=== PATIENT | female | born 1940 | race African-American/Black ===

== ENCOUNTER 2016-11-03 15:45 | Inpatient (IN) | payer MEDICARE ==
[~2016-11-03] VITALS: Ht 167.6 cm; Wt 52.6 kg
[2016-11-03] MEDS ORDERED: IBUPROFEN600 MG ORAL (16:00)
[2016-11-03] MEDS ORDERED: BACTRIM 400-801 EACH ORAL (16:00)
[2016-11-03] MEDS ORDERED: cefTRIAXone 1 GM in NS 55 ML IVPB ONE (16:15)
[2016-11-03] MEDS ORDERED: Morphine Sulfate 2mg/ml Inj IVP ONE ×2 (16:15→22:00)
[2016-11-03 16:57] VITALS: BP 171/130
[2016-11-03 17:17] LABS: ALANINE AMINOTRANSFERASE 12 U/L (3-33); ALBUMIN/GLOBULIN RATIO 1.1 (1.0-2.7); ANION GAP 17 (5-15); ASPARTATE AMINO TRANSFERASE 17 U/L (5-40); CALCIUM 10.4 mg/dL (8.6-10.2); CARBON DIOXIDE 24 mEQ/L (20-30); CHLORIDE 95 mEQ/L (98-107); CREATININE 1.1 mg/dL (0.5-0.9); HEMOLYSIS 0; POTASSIUM 4.5 mEQ/L (3.4-4.9); SODIUM 136 mEQ/L (135-145); TOTAL PROTEIN 8.4 g/dL (6.6-8.7); TROPONIN I < 0.30 ng/mL (<=0.30)
[2016-11-03 17:22] LABS: EOSINOPHILS % (AUTO) 2.5 % (0.0-3.0); LYMPHOCYTES % (AUTO) 24.5 % (20.0-45.0); MEAN CORPUSCULAR HGB CONC 29.6 G/DL (32.0-36.0); MEAN CORPUSCULAR VOLUME 78 FL (80-99); MONOCYTES % (AUTO) 8.3 % (1.0-10.0); NEUTROPHILS % (AUTO) 63.8 % (45.0-75.0); PLATELET COUNT 318 K/UL (150-450); RED BLOOD COUNT 3.92 M/UL (4.20-5.40); RED CELL DISTRIBUTION WIDTH 14.9 % (11.6-14.8); WHITE BLOOD COUNT 6.6 K/UL (4.8-10.8)
[2016-11-03 17:40] LABS: PROTHROMBIN TIME 9.7 SEC (9.30-11.50)
[2016-11-03 18:45] VITALS: BP 160/56
--- NOTE | 2016-11-03 19:51 | Emergency Room Report ---
History of Present Illness General Chief Complaint: Pain Source: Patient Present Illness HPI Patient is a 76-year-old female who presented after having increased left foot pain and swelling. Patient was noted to have prior history of vascular disease and diabetes. Patient stated that she had had recently been seen by her doctor who started her on Bactrim. Patient reported increased pain to her foot. She stated that she had increased pain with ambulation. This did not change with rest or positioning. She denied any fever. She reports having prior history of peripheral vascular disease and states that she's not had a pulse on her feet for the past 3 years. Allergies: Coded Allergies: LEVOFLOXACIN (Verified Allergy, Unknown, 11/03/16) PENICILLINS (Verified Allergy, Unknown, 11/03/16) Patient History Past Medical History: see triage record, DM Now: No Reviewed Nursing Documentation: PMH: Agreed, PSxH: Agreed Nursing Documentation-PMH Hx Diabetes: Yes Review of Systems All Other Systems: negative except mentioned in HPI Physical Exam Vital Signs Date Time Temp Pulse Resp B/P Pulse Ox O2 Delivery O2 Flow Rate FiO2 11/03/16 15:49 97.9 85 17 192/74 99 Room Air Sp02 EP Interpretation: reviewed, normal General Appearance: normal inspection, well appearing, no apparent distress, alert, GCS 15 Head: atraumatic ENT: normal ENT inspection, hearing grossly normal, normal voice Neck: normal inspection, full range of motion, supple, no bony tend Respiratory: normal inspection, lungs clear, normal breath sounds, no respiratory distress, no retraction, no wheezing Cardiovascular #1: regular rate, rhythm, no edema Gastrointestinal: normal inspection, normal bowel sounds, non tender, soft, no guarding, no hernia Genitourinary: no CVA tenderness Musculoskeletal: normal inspection, back normal, normal range of motion Neurologic: normal inspection, alert, oriented x3, responsive, canteen operator III-XII nml as tested, speech normal Psychiatric: normal inspection, judgement/insight normal, mood/affect normal Skin: no rash, other - etyhem Medical Decision Making Diagnostic Impression: Primary Impression: Diabetes Additional Impression: Cellulitis of foot ER Course `Patient is a 76-year-old female who presented after having increased the left lower extremity pain. Differential diagnosis included but was not limited to fracture, contusion, , vascular insufficiency, aortic aneurysm, cellulitis.Because of complexity of patient's case laboratory testing and imaging studies were ordered. The patient was noted to have some vascular lesions in prior history of vascular insufficiency on duplex ultrasound. The patient was noted to have some evidence of cellulitis to left foot. The patient started on IV Rocephin. Dr. Carlitos Carrero was contacted for inpatient management Labs Test 11/03/16 16:30 White Blood Count 6.6 K/UL (4.8-10.8) Red Blood Count 3.92 M/UL (4.20-5.40) Hemoglobin 9.0 G/DL (12.0-16.0) Hematocrit 30.4 % (37.0-47.0) Mean Corpuscular Volume 78 FL (80-99) Mean Corpuscular Hemoglobin 23.0 PG (27.0-31.0) Mean Corpuscular Hemoglobin Concent 29.6 G/DL (32.0-36.0) Red Cell Distribution Width 14.9 % (11.6-14.8) Platelet Count 318 K/UL (150-450) Mean Platelet Volume 6.0 FL (6.5-10.1) Neutrophils (%) (Auto) 63.8 % (45.0-75.0) Lymphocytes (%) (Auto) 24.5 % (20.0-45.0) Monocytes (%) (Auto) 8.3 % (1.0-10.0) Eosinophils (%) (Auto) 2.5 % (0.0-3.0) Basophils (%) (Auto) 1.0 % (0.0-2.0) Prothrombin Time 9.7 SEC (9.30-11.50) Prothromb Time International Ratio 1.0 (0.9-1.1) Activated Partial Thromboplast Time 23 SEC (23-33) Sodium Level 136 mEQ/L (135-145) Potassium Level 4.5 mEQ/L (3.4-4.9) Chloride Level 95 mEQ/L (98-107) Carbon Dioxide Level 24 mEQ/L (20-30) Anion Gap 17 (5-15) Blood Urea Nitrogen 15 mg/dL (7-23) Creatinine 1.1 mg/dL (0.5-0.9) Estimat Glomerular Filtration Rate mL/min (>60) Glucose Level 271 mg/dL (74-106) Calcium Level 10.4 mg/dL (8.6-10.2) Total Bilirubin < 0.2 mg/dL (0.0-1.2) Aspartate Amino Transf (AST/SGOT) 17 U/L (5-40) Alanine Aminotransferase (ALT/SGPT) 12 U/L (3-33) Alkaline Phosphatase 79 U/L (35-104) Troponin I < 0.30 ng/mL (<=0.30) Total Protein 8.4 g/dL (6.6-8.7) Albumin 4.5 g/dL (3.5-5.2) Globulin 3.9 g/dL Albumin/Globulin Ratio 1.1 (1.0-2.7) Last Vital Signs Date Time Temp Pulse Resp B/P Pulse Ox O2 Delivery O2 Flow Rate FiO2 11/03/16 18:45 71 18 160/56 100 Room Air 11/03/16 17:13 97.8 Status: unchanged Disposition: ADMITTED INPATIENT Condition: Serious Referrals: NOT CHOSEN IPA/,REFERRING (PCP) Aubrey Whitaker Nov 03, 2016 19:51
[2016-11-03 23:00] VITALS: BP 190/88
[2016-11-03] MEDS ORDERED: Vancomycin 750mg Inj IVPB ONE (23:35)
[2016-11-04] VITALS (7 sets, daily range): BP systolic 151–195; BP diastolic 56–89
[2016-11-04] MEDS: Vancomycin 750mg/D5W 275ml IVPB SCH ×4 (00:45→21:49)
--- NOTE | 2016-11-04 02:59 | History and Physical Report ---
DATE OF ADMISSION: 11/03/2016 REASON FOR ADMISSION: Left lower extremity cellulitis and pain. HISTORY OF PRESENT ILLNESS: This is a 76-year-old female with a history of diabetes mellitus. She has a known history of peripheral artery disease and states that she has poor circulation to her left leg. She has had increasing pain and tightness of the skin of her toes. The left first and second toes have also lost the nail beds and have had some open ulcers that have been more and more painful. The patient self-treated with some clover extract. The patient presented to the hospital for management of pain and possible infection. She was given oral antibiotics namely Bactrim and ibuprofen for pain at a clinic last week, but did not improve. ALLERGIES: Include penicillin and Levaquin. SOCIAL HISTORY: She is an active smoker, five to six cigarettes daily, but has smoked more in the past. No alcohol or substance abuse. MEDICATIONS: Prior to admission include Prandin and ibuprofen as well as recent Bactrim. PAST MEDICAL HISTORY: Peripheral artery disease and type 2 diabetes mellitus. REVIEW OF SYSTEMS: No fevers or chills. No cough or sputum production. No history of asthma or blood clots. No history of seizure or stroke. No history of heart attacks or high blood pressure. No change in bowel habits. No recent mammogram. No history of kidney disorders. No known history of thyroid disorder. Does not know her cholesterol level. PHYSICAL EXAMINATION: GENERAL: Thin, frail, in no acute distress. VITAL SIGNS: Afebrile, blood pressure 192/74, pulse 85, and respirations 17. HEENT: Temporal wasting. Pale conjunctivae. Oropharynx clear. NECK: Supple. Jugular venous pressure normal. LUNGS: Clear. BREASTS: No breast masses. CARDIAC: Regular rhythm and rate. Normal S1 and S2 with a fourth heart sound. ABDOMEN: Soft and nontender. EXTREMITIES: No edema. Distal pulses not palpable. The left foot is much worse than the right with regard to coolness, but no gangrenous changes. The skin is tight and the first and second toe beds of black discoloration. LABORATORY DATA: White count 6.6, hemoglobin 9, MCV 78, and platelet count 318,000. Sodium 136, potassium 4.5, bicarbonate 24, BUN 15, creatinine 1.1, and glucose 271. Troponin negative. Albumin 4.5. IMPRESSION: 1. Left lower extremity cellulitis. 2. Peripheral artery disease, likely microvascular. 3. Microcytic anemia. 4. Type 2 diabetes mellitus, uncontrolled. 5. Elevated blood pressure, rule out hypertension. 6. Nicotine abuse. PLAN: 1. Pain control. 2. Noninvasive imaging studies of the arterial lower extremity bed. 3. Empiric antibiotics. 4. Imaging studies to assess for deepest infection. 5. Insulin coverage by sliding scale . 6. Consider additional oral hypoglycemic therapy. 7. Check lipid panel. 8. Add lisinopril for blood pressure control. 9. Check thyroid function. 10. DVT prophylaxis. 11. Further recommendations will follow. Carlitos Carrero M.D. DR: YOVANI JOB#: [id number] CC:
[2016-11-04] MEDS ORDERED: NovoLOG Insulin Flexpen SUBQ SCH (06:30)
[2016-11-04 06:58] LABS: MEAN CORPUSCULAR HEMOGLOBIN 23.1 PG (27.0-31.0); MEAN CORPUSCULAR HGB CONC 30.1 G/DL (32.0-36.0); MEAN CORPUSCULAR VOLUME 77 FL (80-99); MEAN PLATELET VOLUME 6.4 FL (6.5-10.1); PLATELET COUNT 266 K/UL (150-450); RED BLOOD COUNT 3.31 M/UL (4.20-5.40); WHITE BLOOD COUNT 6.9 K/UL (4.8-10.8)
[2016-11-04] MEDS ORDERED: HYDROmorphone 1mg/ml Carpuject IVP PRN (07:00)
[2016-11-04] MEDS: Repaglinide 1mg tab ORAL SCH ×3 (07:02→16:42)
[2016-11-04] MEDS: NovoLOG Insulin Flexpen SUBQ SCH ×4 (07:04→20:36)
[2016-11-04 07:08] LABS: THYROID STIMULATING HORMONE 1.4 uIU/mL (0.300-4.500)
[2016-11-04] MEDS: Norco 5mg/325mg tab ORAL PRN ×2 (07:10→23:14)
[2016-11-04 08:14] LABS: CHOLESTEROL/HDL RATIO 2.2 (3.3-4.4)
[2016-11-04 08:18] LABS: HEMOGLOBIN A1C 10.2 % (< 6.0)
[2016-11-04] MEDS: Lisinopril 20mg tab ORAL SCH (09:00)
[2016-11-04] MEDS: Aspirin Baby 81mg NG SCH (09:00)
[2016-11-04 10:43] LABS: EOSINOPHILS % (MANUAL) 4 % (0-3); LYMPHOCYTES % (MANUAL) 32 % (20-45); NEUTROPHILS % (MANUAL) 56 % (45-75); TOTAL CELLS COUNTED 100
[2016-11-04 10:44] LABS: ANISOCYTOSIS 1+; BAND NEUTROPHILS % (MANUAL) 0 % (0-8); BASOPHILS % (MANUAL) 0 % (0-2); HYPOCHROMASIA 2+; PLATELET ESTIMATE ADEQUATE; PLATELET MORPHOLOGY NORMAL
--- NOTE | 2016-11-04 13:19 | Diagnostic Imaging Report ---
APPROVED REPORT CPT Code: 07353 Symptoms Comments: Severe LE pain, left toes. Risk Factors Diabetes RIGHT LEG: Common femoral artery waveform analysis is within normal limits at rest. Color flow duplex sonography reveals moderate calcification throughout the superficial femoral artery. A severe stenosis (50 % - 70%) is seen in the bnu-un-uincic superficial femoral artery. A minimal (10 % - 30 %) stenosis is seen in the popliteal artery. The tibioperoneal trunk is patent. There is a severe stenosis in the posterior tibial and peroneal arteries. The distal posterior and dorsalis pedis arteries are also moderately calcified. The Doppler tibial artery waveform analysis is compatible with severe ischemia at rest. LEFT LEG: Common femoral artery waveform analysis is within normal limits at rest. Color flow duplex sonography reveals moderate to severe calcification throughout the superficial femoral artery. A mild stenosis is seen at the bifurcation of the profunda femoris and the superficial femoral artery. A severe stenosis (50 % - 70%) is seen in the qut-xv-xohmpe superficial femoral artery. A minimal (10 % - 30 %) stenosis is seen in the popliteal artery. The tibioperoneal trunk is patent. There is a severe stenosis in the posterior tibial and peroneal arteries. The distal posterior and dorsalis pedis arteries are also moderately calcified. The Doppler tibial artery waveform analysis is compatible with severe ischemia at rest. Dr. Whitaker was informed of abnormal results at 18:40 hrs.
[2016-11-04] MEDS ORDERED: D5W 275ml ONE (16:21)
[2016-11-04] MEDS ORDERED: Tubing IV Secondary IV ONE (16:21)
[2016-11-04] MEDS: Heparin 5000 units/ml inj SUBQ SCH (20:36)
[2016-11-04] MEDS: Iron Sucrose 100 MG in NS 55 ML IVPB SCH (21:18)
[2016-11-05] VITALS: BP 175/73
[2016-11-05 04:00] VITALS: BP 169/69
[2016-11-05] MEDS: Repaglinide 1mg tab ORAL SCH ×3 (05:53→16:54)
[2016-11-05] MEDS: NovoLOG Insulin Flexpen SUBQ SCH ×4 (05:54→21:11)
[2016-11-05] MEDS: Norco 5mg/325mg tab ORAL PRN ×2 (07:48→22:01)
[2016-11-05] MEDS: Lisinopril 20mg tab ORAL SCH (07:58)
[2016-11-05] MEDS: Aspirin Baby 81mg NG SCH (07:59)
[2016-11-05 08:00] VITALS: BP 153/77
[2016-11-05] MEDS: Heparin 5000 units/ml inj SUBQ SCH ×2 (08:00→20:02)
--- NOTE | 2016-11-05 08:27 | Diagnostic Imaging Report ---
Indication: Pain Technique: Left foot imaging utilizing multiplanar T1 fast spin-echo, proton and T2 fast spin-echo with fat saturation, and STIR. Comparison: None Findings: The region of concern is the first and second toes. Specifically there is an infection of the nailbed in both toes. The MRI images demonstrate some T2 hyperintense signal within the first and second distal phalanges with completely normal T1 appearance. Findings are probably on the basis of reactive bone marrow edema secondary to the nailbed infection. Osteomyelitis is not entirely excludable but the specificity of MR diagnosis of osteomyelitis is significantly lower when the short T1 signal (indicative of fat) is preserved which it is in this case. There is no abscess. The other visualized osseous structures appear unremarkable. Impression: Nonspecific T2 hyperintensity likely edema involving the tip of the first and second distal phalanges. The findings are probably on the basis of reactive bone marrow edema secondary to adjacent nailbed soft tissue infection. Osteomyelitis is not excluded.
[2016-11-05 12:00] VITALS: BP 154/63
[2016-11-05 12:10] LABS: BASOPHILS % (AUTO) 0.9 % (0.0-2.0); EOSINOPHILS % (AUTO) 3.4 % (0.0-3.0); LYMPHOCYTES % (AUTO) 27.4 % (20.0-45.0); MEAN CORPUSCULAR HEMOGLOBIN 22.9 PG (27.0-31.0); MEAN CORPUSCULAR HGB CONC 29.7 G/DL (32.0-36.0); MEAN CORPUSCULAR VOLUME 77 FL (80-99); MEAN PLATELET VOLUME 6.1 FL (6.5-10.1); MONOCYTES % (AUTO) 9.6 % (1.0-10.0); NEUTROPHILS % (AUTO) 58.8 % (45.0-75.0); PLATELET COUNT 315 K/UL (150-450); RED BLOOD COUNT 3.56 M/UL (4.20-5.40); WHITE BLOOD COUNT 6.5 K/UL (4.8-10.8)
[2016-11-05 16:00] VITALS: BP 143/65
[2016-11-05 20:00] VITALS: BP 171/93
[2016-11-05] MEDS: Iron Sucrose 100 MG in NS 55 ML IVPB SCH (21:26)
[2016-11-05] MEDS: Vancomycin 750mg/D5W 275ml IVPB SCH ×2 (22:13)
[2016-11-06] VITALS: BP 125/89
--- NOTE | 2016-11-06 02:08 | Progress Note ---
DATE: 11/05/2016 INTERNAL MEDICINE PROGRESS NOTE SUBJECTIVE: The patient feels better. Pain is improving. Her hemoglobin has increased to 8.2. She is on IV iron. Glucose remains elevated in the range of 200. OBJECTIVE: VITAL SIGNS: Blood pressure 154/63, pulse 77, and respirations 20. NECK: Supple. LUNGS: Clear. CARDIAC: Regular. ABDOMEN: Soft. EXTREMITIES: No edema. Feet are warm. Left toe is still with tenderness over the nail bed. IMPRESSION: The patient refuses antihypertensive therapy. She agrees to continued iron replacement. She confirms a colonoscopy within the last two years with no findings. She will complete antibiotics for her local soft tissue infection. She will consider vascular evaluation as an outpatient. She will agree to advancing her oral hypoglycemic drugs as well. Carlitos Carrero M.D. DR: EARNEST JOB#: [id number] CC:
[2016-11-06 04:00] VITALS: BP 149/74
[2016-11-06] MEDS: Norco 5mg/325mg tab ORAL PRN (04:03)
[2016-11-06] MEDS: metFORMIN 500mg tab ORAL SCH ×2 (05:49→12:46)
[2016-11-06] MEDS: NovoLOG Insulin Flexpen SUBQ SCH ×2 (05:50→11:30)
[2016-11-06] MEDS: Repaglinide 1mg tab ORAL SCH ×2 (05:50→12:46)
--- NOTE | 2016-11-06 06:58 | Progress Note ---
DATE: 11/04/2016 INTERNAL MEDICINE PROGRESS NOTE LATE ENTRY FOR 11/04/2016. SUBJECTIVE: The patient still has foot pain. No chest pain or shortness of breath. MRI of the feet revealed probable edema of the toenail bed rather than osteomyelitis. Hemoglobin is 7.8. REVIEW OF SYSTEMS: The patient notes having had a colonoscopy two or so years ago with no significant findings. OBJECTIVE: VITAL SIGNS: Stable. LUNGS: Clear. CARDIAC: Regular. ABDOMEN: Soft. EXTREMITIES: Without edema or erythema. IMPRESSION: 1. Onychomycosis. 2. Cellulitis. 3. Peripheral artery disease. 4. Anemia, iron deficiency. 5. Type 2 diabetes mellitus with complications including neuropathy. PLAN: Antimicrobials. Outpatient vascular evaluation. The patient wants to reassess for transfusion, IV iron, and titrate oral hypoglycemic regimen. Carlitos Carrero M.D. DR: Julianne JOB#: [id number] CC:
[2016-11-06 08:00] VITALS: BP 142/58
[2016-11-06] MEDS: Heparin 5000 units/ml inj SUBQ SCH (09:00)
[2016-11-06] MEDS: Aspirin Baby 81mg NG SCH (09:00)
[2016-11-06] MEDS: Lisinopril 20mg tab ORAL SCH (09:13)
[2016-11-06 12:00] VITALS: BP 148/75
[2016-11-06] MEDS ORDERED: Bactrim DS (160mg/800mg) tab ORAL SCH (13:15)
[2016-11-06] MEDS ORDERED: Tubing IV Secondary IV ONE (13:59)
--- NOTE | 2016-11-06 20:48 | Progress Note ---
DATE: 11/06/2016 CARDIOLOGY AND INTERNAL MEDICINE PROGRESS NOTE SUBJECTIVE: The patient is anxious to go home. She could not wait for my arrival to give her prescriptions, but I have to her. Pain is controlled. OBJECTIVE: VITAL SIGNS: Stable. Blood pressure is slightly elevated, but the patient is considering compliance with antihypertensive drugs. NECK: Supple. LUNGS: Clear. CARDIAC: Regular. Normal S1 and S2. ABDOMEN: Soft. EXTREMITIES: No edema. Perfusion of the digits is decreased, but adequate. IMPRESSION: 1. Peripheral artery disease. 2. Left foot ischemia and cellulitis. 3. Onychomycosis. 4. Type 2 diabetes mellitus, poor control. 5. Hypertensive heart disease. 6. Hyperlipidemia. PLAN: Continue Prandin. Add metformin. Add angiotensin-converting enzyme inhibitor. Antiplatelet therapy added. Anti-lipid drug added. Complete antibiotics additional five days. Outpatient Podiatry and Vascular Surgery assessment, although the patient did not want to consider surgical intervention yet for the latter consultation. Carlitos Carrero M.D. DR: DAINA JOB#: [id number] CC:
[2016-11-09] MEDS ORDERED: LISINOPRIL30 MG ORAL (12:07)
[2016-11-09] MEDS ORDERED: ASPIRIN EC81 MG ORAL (12:07)
[2016-11-09] MEDS ORDERED: BACTRIM 400-801 EACH ORAL (12:07)
[2016-11-09] MEDS ORDERED: PRANDIN2 MG ORAL (12:07)
[2016-11-09] MEDS ORDERED: FERROUS SULFAT325 MG ORAL (12:07)
[2016-11-09] MEDS ORDERED: METFORMIN HCL500 M1 ORAL (12:07)
[2016-11-09] MEDS ORDERED: NEURONTIN100 MG ORAL (12:07)
--- NOTE | 2016-11-09 12:16 | Discharge Summary ---
Discharge Summary Hospital Course Date of Admission Nov 03, 2016 at 17:10 Date of Discharge Nov 06, 2016 at 14:00 Admitting Diagnosis foot cellulitis,Diabetes Mellitus HPI Jaimie Griffith is a 76 year old female who was admitted on Nov 03, 2016 at 17:10 for Foot Cellulitis Diabetes Mellitus Hospital Course dc summary dictated # [id number] Discharge Medications New Medications: Aspirin Ec* (Aspirin Ec*) 81 Mg Tablet.dr 81 MG ORAL DAILY, #30 TAB Ferrous Sulfate* (Ferrous Sulfate*) 325 Mg Tablet 325 MG ORAL THREE TIMES A DAY, #90 TAB 0 Refills Gabapentin* (Neurontin*) 100 Mg Capsule 300 MG ORAL THREE TIMES A DAY, #90 CAP Lisinopril* (Lisinopril*) 30 Mg Tablet 20 MG ORAL DAILY, #30 TAB Metformin Hcl* (Metformin Hcl*) 500 Mg Tablet 500 MG ORAL TWICE A DAY, #60 TAB Repaglinide (Prandin) 2 Mg Tablet 2 MG ORAL THREE TIMES A DAY, #90 TAB Continued Medications: Ibuprofen* (Motrin*) 600 Mg Tablet 400 MG ORAL Q8H PRN for For Pain, #30 TAB 0 Refills Sulfamethoxazole/Trimethoprim (Bactrim 400-80 Mg Tablet*) 1 Each Tablet 1 TAB ORAL TWICE A DAY, #10 TAB (This prescription has been renewed) Discharge Discharge Disposition Patient was discharged to Home () Discharge Diagnoses: Discharge Instructions Discharge Instructions Special Instructions I have been assigned to complete a D/C Summary on this account. I was not involved in the patient management Doris Gil NP (Vanchtein) Nov 09, 2016 12:16
--- NOTE | 2016-11-10 05:09 | Discharge Summary 2 SIG ---
DATE OF ADMISSION: 11/03/2016 DATE OF DISCHARGE: 11/06/2016 REASON FOR ADMISSION: 76 years old female with a history of diabetes and peripheral arterial disease, came complaining of increasing pain and tightness on the skin of her left first and second toes and open ulcer, which became progressively more painful. The patient self-treated herself with a clover extract. She was given oral antibiotics as outpatient and ibuprofen for pain at clinic without much improvement. The patient presented to the hospital for management of her pain and possible infection. The patient had no leukocytosis. Denied fever. Glucose not controlled, -271. The patient noted to be anemic with microcytic anemia, MCV of 78 and hemoglobin of 9. The patient was admitted for further management. ADMITTING DIAGNOSES: 1. Left lower extremity cellulitis. 2. Diabetes mellitus, out of control. 3. Peripheral arterial disease likely microvascular. 4. Microcytic anemia. 5. Elevated blood pressure, possible hypertension. 6. Nicotine abuse. HOSPITAL STAY: The patient was admitted to the floor. The patient started on empiric intravenous antibiotics, which subsequently were switched to oral for five more days upon discharge. Pain management provided Hemoglobin A1c at 10.2, not at goal. The patient was treated with oral anti-glycemic Prandin and metformin and sliding scale of insulin as needed. The patient noted to be anemic. Anemia workup revealed low iron. The patient was given intravenous Venofer and was discharged on oral iron supplements. Stool for occult blood was negative. Lipid panel was within normal limits. Thyroid panel was stable. Blood pressure was managed with JOSÉ ANTONIO inhibitor, patient initially refused, but then agreed. DVT prophylaxis provided. The patient was counseled on smoking cessation and offered nicotine patch. The patient declined and stated that she was not ready to quit. The patient given an option to have a vascular surgeon and oven dauber to see her in the hospital. Patient preferred to go home and see them as an outpatient. Arterial duplex bilateral lower extremities revealed severe stenosis 50% to 70% and [id number] superficial femoral artery and severe stenosis of posterior tibial and peroneal artery. The patient was on antiplatelet therapy .Reinforced that due to these findings, the patient needs to see a vascular surgeon next week. The patient started on Neurontin for pain control. MRI of the foot was nonspecific. T2 hyperintensity likely edema involving the deep of first and second distal phalanges. The findings are probably on the basis of reactive bone marrow edema secondary to adjacent nail bed soft tissue infection. However, osteomyelitis could not be excluded. The patient will be closely monitored as outpatient after completion of antibiotic for any evidence of osteomyelitis. The patient also recommended to see oven dauber on an outpatient basis due to the onychomycosis. The patient was stable for discharge. DISCHARGE DIAGNOSES: 1. Left lower extremity cellulitis. 2. Onychomycosis. 3. Severe left lower extremity peripheral arterial disease. 4. Diabetes mellitus, out of control, hemoglobin A1c 10.2. 5. Diabetic neuropathy. 6. Iron-deficiency anemia. 7. Hypertensive heart disease. 8. Nicotine abuse. DISCHARGE MEDICATIONS: See medication reconciliation list. Continue Bactrim for five more days. Other medication as outlined in medication reconciliation list. DISCHARGE INSTRUCTIONS: The patient to see vascular surgeon next week. The patient recommended to see oven dauber for nail care. Carlitos Carrero M.D. I have been assigned to dictate discharge summary on this account and I was not involved in the patient's management. Doris Gil ([facility] N.PArjun DR: Wendy JOB#: [id number] CC: KRIS
== END 2016-11-06 14:00 | disposition home or self-care (01) | DRG 603 ==
LOC: EMR 16:17 → 4W 17:10 → EDBEDREQ 19:45
DX: L03.116 Cellulitis of left lower limb (principal); E11.40 Type 2 diabetes mellitus with diabetic neuropathy, unspecified; I11.9 Hypertensive heart disease without heart failure; E11.65 Type 2 diabetes mellitus with hyperglycemia; B35.1 Tinea unguium; E78.5 Hyperlipidemia, unspecified; E11.8 Type 2 diabetes mellitus with unspecified complications; I73.9 Peripheral vascular disease, unspecified; D50.9 Iron deficiency anemia, unspecified; Z72.0 Tobacco use; Z88.0 Allergy status to penicillin
CPT/HCPCS: 36415; 80053; 80061; 82270; 82607; 82746; 82962; 83036; 83540; 83550; 84443; 84484; 85007; 85025; 85610; 85730; 86850; 86900; 86901; 86920; 93925; J1815